=== PATIENT | male | born 1970 | race Two or more races ===

== ENCOUNTER 2016-07-25 02:34 | Observation (INO) | payer OTHER ==
[~2016-07-25] VITALS: Ht 177.8 cm; Wt 147.4 kg
[2016-07-25 03:12] LABS: BASO # 0.1 x10^3/uL (0.0-0.2); BASO % 1 % (0-3); EOS % 5 % (0-3); HEMATOCRIT 42.5 % (39.0-53.0); LYMPH # 2.9 x10^3/uL (1.0-4.8); LYMPH % 26 % (24-48); MEAN CORPUSCULAR HEMOGLOBIN 28 pg (25-35); MEAN CORPUSCULAR HGB CONC 33 g/dL (31-37); MEAN CORPUSCULAR VOLUME 86 fL (79-100); MONO % 8 % (0-9); NEUT % 60 % (31-73); PLATELET COUNT 197 x10^3/uL (140-400); RED BLOOD COUNT 4.97 x10^6/uL (4.30-5.70)
[2016-07-25] MEDS ORDERED: MORPHINE SULFATE 2 MG/ML DISP.SYRIN. IV PRN ×2 (03:15→12:30)
[2016-07-25] MEDS ORDERED: NITROGLYCERIN SUBLINGUAL 0.4 MG BOTTLE OF 25. SL PRN (03:15)
[2016-07-25] MEDS ORDERED: ASPIRIN 81 MG TAB.CHEW PO ONE (03:15)
[2016-07-25 03:24] LABS: CALCIUM 8.7 mg/dL (8.5-10.1); CREATININE 0.8 mg/dL (0.7-1.3); GFR 104.5; POTASSIUM 3.8 mmol/L (3.5-5.1)
[2016-07-25 03:30] LABS: ALBUMIN 3.4 g/dL (3.4-5.0); DIRECT BILIRUBIN 0.2 mg/dL (0.0-0.2); TOTAL BILIRUBIN 0.5 mg/dL (0.2-1.0)
[2016-07-25] MEDS ORDERED: IPRATRPIUM/ALBUTEROL 0.5/2.5MG 3 ML NEBU. NEB ONE (03:30)
[2016-07-25 05:00] VITALS: BP 160/79
--- NOTE | 2016-07-25 05:02 | PHYS DOC ---
Past Medical History Past Medical History: Hypertension Past Surgical History: Appendectomy Additional Past Surgical Histo: colon resection Alcohol Use: None Drug Use: None Adult General Chief Complaint Chief Complaint: SHORTNESS OF BREATH HPI HPI 46-year-old male presenting the emergency department with chest pressure that was 2 out of 10 nonradiating and not associated with nausea vomiting and diaphoresis. The pain was intermittent. Currently he is chest pain-free. He had associated shortness of breath. No alleviating or exacerbating factors. He did not take any medications to alleviate his pain. Review of Systems Review of Systems ROS negative for fevers chills cough. Negative for nausea vomiting. All other review of systems is negative unless otherwise noted in history of present illness. Current Medications Current Medications Current Medications Medications (Trade) Dose Ordered Sig/Jose Start Time Stop Time Status Last Admin Dose Admin Albuterol/ Ipratropium (Duoneb) 3 ml 1X ONCE 07/25/16 03:30 07/25/16 03:31 DC Aspirin (Children'S Aspirin) 324 mg 1X ONCE 07/25/16 03:15 07/25/16 03:22 DC 07/25/16 03:20 324 MG Morphine Sulfate 2 mg PRN Q1HR PRN 07/25/16 03:15 Nitroglycerin (Nitrostat) 0.4 mg PRN Q5MIN PRN 07/25/16 03:15 Allergies Allergies Allergies Coded Allergies Type Severity Reaction Last Updated Verified No Known Drug Allergies 07/25/16 No Physical Exam Physical Exam Constitutional: Well developed, well nourished, no acute distress, non-toxic appearance. obese. HENT: Normocephalic, atraumatic, bilateral external ears normal, oropharynx moist, no oral exudates, nose normal. [] Eyes: PERRLA, EOMI, conjunctiva normal, no discharge. Neck: Normal range of motion, no tenderness, supple, no stridor. Cardiovascular:Heart rate regular rhythm, no murmur Lungs & Thorax: Bilateral breath sounds clear to auscultation [] Abdomen: Bowel sounds normal, soft, no tenderness, no masses, no pulsatile masses. Skin: Warm, dry, no erythema, no rash. Back: No tenderness, no CVA tenderness. Extremities: No tenderness, no cyanosis, no clubbing, ROM intact, no edema. [] Neurologic: Alert and oriented X 3, normal motor function, normal sensory function, no focal deficits noted. Psychologic: Affect normal, judgement normal, mood normal. [] Current Patient Data Vital Signs Vital Signs Date Time Temp Pulse Resp B/P Pulse Ox O2 Delivery O2 Flow Rate FiO2 07/25/16 03:18 64 22 159/90 95 Room Air 07/25/16 02:42 98.4 98.4 Lab Values Laboratory Tests Test 07/25/16 02:55 White Blood Count 11.0x10^3/uL (4.0-11.0) Red Blood Count 4.97x10^6/uL (4.30-5.70) Hemoglobin 14.0g/dL (13.0-17.5) Hematocrit 42.5% (39.0-53.0) Mean Corpuscular Volume 86fL (79-100) Mean Corpuscular Hemoglobin 28pg (25-35) Mean Corpuscular Hemoglobin Concent 33g/dL (31-37) Red Cell Distribution Width 14.0% (11.5-14.5) Platelet Count 197x10^3/uL (140-400) Neutrophils (%) (Auto) 60% (31-73) Lymphocytes (%) (Auto) 26% (24-48) Monocytes (%) (Auto) 8% (0-9) Eosinophils (%) (Auto) 5% (0-3) H Basophils (%) (Auto) 1% (0-3) Neutrophils # (Auto) 6.6x10^3uL (1.8-7.7) Lymphocytes # (Auto) 2.9x10^3/uL (1.0-4.8) Monocytes # (Auto) 0.9x10^3/uL (0.0-1.1) Eosinophils # (Auto) 0.5x10^3/uL (0.0-0.7) Basophils # (Auto) 0.1x10^3/uL (0.0-0.2) Sodium Level 139mmol/L (136-145) Potassium Level 3.8mmol/L (3.5-5.1) Chloride Level 101mmol/L (98-107) Carbon Dioxide Level 29mmol/L (21-32) Anion Gap 9 (6-14) Blood Urea Nitrogen 10mg/dL (8-26) Creatinine 0.8mg/dL (0.7-1.3) Estimated GFR (Cockcroft-Gault) 104.5 Glucose Level 357mg/dL (70-99) H Calcium Level 8.7mg/dL (8.5-10.1) Total Bilirubin 0.5mg/dL (0.2-1.0) Direct Bilirubin 0.2mg/dL (0.0-0.2) Aspartate Amino Transferase (AST) 29U/L (15-37) Alanine Aminotransferase (ALT) 48U/L (16-63) Alkaline Phosphatase 161U/L (46-116) H Troponin I Quantitative < 0.017ng/mL (0.000-0.055) ZL-Som-X-Type Natriuretic Peptide 18pg/mL (0-124) Total Protein 8.0g/dL (6.4-8.2) Albumin 3.4g/dL (3.4-5.0) Lipase 139U/L (73-393) Laboratory Tests 07/25/16 02:55 Laboratory Tests 07/25/16 02:55 EKG EKG [] EKG shows sinus rhythm with a regular rate. [place] mildly leftward. Intervals are within normal limits. ST segments are congruent. Radiology/Procedures Radiology/Procedures [] Chest x-ray compared to previous in November 202009 similar to previous. Cardiomegaly present. No acute infiltrate or pneumothorax. Course & Med Decision Making Course & Med Decision Making Pertinent Labs and Imaging studies reviewed. (See chart for details) 46-year-old male presenting to the emergency department with chest pain that woke up the patient from sleep. Associated with shortness of breath. The pain resolved prior to arrival. Vital signs afebrile regular rate and hypertensive. Physical exam no murmur regular rate with clear to auscultation in the lung velez. EKG unremarkable. Chest x-ray similar to previous. Troponin negative. Glucose elevated at over 300. Patient was then admitted for serial troponins. Dragon Disclaimer Dragon Disclaimer This electronic medical record was generated, in whole or in part, using a voice recognition dictation system. Departure Departure Impression: Primary Impression: Shortness of breath Additional Impressions: Chest pain Diabetes Hypertension Obesity Disposition: 09 ADMITTED INPATIENT Admitting Physician: Suraj Dubois Condition: STABLE Referrals: SURAJ DUBOIS MD (PCP) Problem Qualifiers TO MCCORD MD Jul 25, 2016 05:02
[2016-07-25] MEDS ORDERED: LISI2.5T PO (05:37)
[2016-07-25 07:00] VITALS: BP 139/74
--- NOTE | 2016-07-25 07:38 | RAD ---
Indication: Chest pain. Technique: Upright portable chest radiograph was obtained. Comparison is from November 20, 2009. Findings: The lungs are clear. The cardiopulmonary silhouette is within normal limits. The bony structures are intact. Leads overlie the patient. Impression: No active pulmonary disease.
[2016-07-25 10:34] VITALS: BP 156/73
--- NOTE | 2016-07-25 10:35 | EKG ---
[facility] [address] [place] [address] Test Date: 2016-07-25 Test Time: 03:07:21 Pat Name: ADRYAN EISENBERG Department: Room: Gender: M Curriculum Developer: : 1970 Requested By: TO MCCORD Order Number: [id number] Reading MD: Measurements Intervals Leopold Rate: 67 P: 32 WI: 156 QRS: 3 QRSD: 100 T: 10 QT: 384 QTc: 409 Interpretive Statements SINUS RHYTHM R-S TRANSITION ZONE IN V LEADS DISPLACED TO THE LEFT QRS(T) CONTOUR ABNORMALITY CONSIDER ANTEROSEPTAL MYOCARDIAL DAMAGE POSSIBLY ABNORMAL ECG RI6.01 No previous ECG available for comparison
[2016-07-25] MEDS ORDERED: CALCIUM CARBONATE 500 MG TAB.CHEW PO PRN (12:30)
[2016-07-25] MEDS ORDERED: PROCHLORPERAZINE 25 MG SUPP.RECT. PR PRN (12:30)
[2016-07-25] MEDS ORDERED: ACETAMINOPHEN 325 MG TABLET. PO PRN (12:30)
[2016-07-25] MEDS ORDERED: LABETALOL 20 MG/4 ML DISP.SYRIN. IVP PRN (12:30)
[2016-07-25] MEDS ORDERED: MAG HYDROX/AL HYDROX/SIMETH 30 ML ORAL.SUSP PO PRN (12:30)
[2016-07-25] MEDS ORDERED: PROCHLORPERAZINE 10 MG/2 ML VIAL. IV PRN (12:30)
[2016-07-25] MEDS ORDERED: DEXTROSE 50% 25 GM / 50ML DISP.SYRIN. IV PRN (12:30)
[2016-07-25] MEDS ORDERED: ZOLPIDEM 5 MG TABLET. PO PRN (12:30)
[2016-07-25] MEDS ORDERED: BISACODYL 10 MG SUPP.RECT PR PRN (12:30)
[2016-07-25] MEDS ORDERED: MAGNESIUM HYDROXIDE 2,400 MG/30 ML ORAL.SUSP. PO PRN (12:30)
[2016-07-25] MEDS ORDERED: IBUPROFEN 400 MG TABLET. PO PRN (12:30)
[2016-07-25] MEDS ORDERED: LACTULOSE 20 GM/30 ML SOLUTION. PO PRN (12:30)
[2016-07-25] MEDS ORDERED: ONDANSETRON PF 4 MG/2 ML VIAL. IV PRN (12:30)
[2016-07-25] MEDS ORDERED: OXYCODONE IR 5 MG TABLET. PO PRN (12:30)
[2016-07-25] MEDS ORDERED: KETOROLAC 15 MG/ML VIAL. IV PRN (12:30)
[2016-07-25 12:54] LABS: CHOLESTEROL/HDL RATIO 7.3
[2016-07-25] MEDS: DOCUSATE SODIUM 100 MG CAPSULE PO SCH ×2 (13:00→20:53)
[2016-07-25] MEDS: LISINOPRIL 2.5 MG TABLET PO SCH (13:15)
--- NOTE | 2016-07-25 14:05 | PDOC1 ---
History and Physical Date of Admission Date of Admission DATE: 07/25/16 TIME: 14:00 Identification/Chief Complaint Chief Complaint chest pain Source Source: Caregiver, Chart review, Patient History of Present Illness History of Present Illness 46 y/o obese AA male with HTN, supposed to be taking Lisinopril 2.5 PO qD ( based on home med) but has not been doing so. PCP is supposed to be dr. Dubois but the attending called me and said he has not beens een by them x 3 yrs now. In any case, CP at rest, no known alleviating, some SOA, no emesis, no presyncopal sxs. NO radiation, maybe dull or pressure in description. Essentially low risk except for sex, obesity and sedentary lifestyle. NOn smoker , non drinker, BP on high side and has not been taking meds. NOt known DM but BS have been ranging in mid 200s to 300s. Past Medical History Cardiovascular: HTN Past Surgical History Past Surgical History: No pertinent history Family History Family History: Hypertension Social History Smoke: No ALCOHOL: none Drugs: None Current Problem List Problem List Problems Medical Problems: (1) Chest pain Status: Acute (2) Chest pain Status: Acute (3) Diabetes Status: Acute (4) Diabetes Status: Acute (5) Hypertension Status: Acute (6) Hypertension Status: Acute (7) N&V (nausea and vomiting) Status: Acute (8) N&V (nausea and vomiting) Status: Acute (9) Obesity Status: Acute (10) Obesity Status: Acute (11) Shortness of breath Status: Acute (12) Shortness of breath Status: Acute Problems: Current Medications Current Medications Current Medications Aspirin (Children'S Aspirin) 324 mg 1X ONCE PO Last administered on at 03:20; Start 07/25/16 at 03:15; Stop 07/25/16 at 03:22; Status DC Nitroglycerin (Nitrostat) 0.4 mg PRN Q5MIN PRN SL CHEST PAIN; Start 07/25/16 at 03:15 Morphine Sulfate 2 mg PRN Q1HR PRN IV SEVERE PAIN; Start 07/25/16 at 03:15 Albuterol/ Ipratropium (Duoneb) 3 ml 1X ONCE NEB ; Start 07/25/16 at 03:30; Stop 07/25/16 at 03:31; Status DC Ondansetron HCl (Zofran) 4 mg PRN Q6HRS PRN IV NAUSEA/VOMITING; Start at 12:30 Prochlorperazine Edisylate (Compazine) 10 mg PRN Q6HRS PRN IV NAUSEA/VOMITING; Start 07/25/16 at 12:30 Prochlorperazine (Compazine) 25 mg PRN Q12HR PRN IN NAUSEA/VOMITING; Start at 12:30 Al Hydroxide/Mg Hydroxide (Mylanta Plus Xs) 30 ml PRN Q3HRS PRN PO HEARTBURN / GAS; Start 07/25/16 at 12:30 Calcium Carbonate/ Glycine (Tums) 500 mg PRN Q3HRS PRN PO UPSET STOMACH; Start 07/25/16 at 12:30 Zolpidem Tartrate (Ambien) 5 mg PRN QHS PRN PO INSOMNIA, MAY REPEAT IN 1HR; Start 07/25/16 at 12:30 Oxycodone HCl (Roxicodone) 5 mg PRN Q3HRS PRN PO BREAKTHROUGH PAIN; Start at 12:30 Morphine Sulfate 1 mg PRN Q1HR PRN IV PAIN; Start 07/25/16 at 12:30 Ketorolac Tromethamine (Toradol) 15 mg PRN Q6HRS PRN IV PAIN; Start 07/25/16 at 12:30; Stop 07/30/16 at 12:29 Acetaminophen (Tylenol) 650 mg PRN Q6HRS PRN PO MILD PAIN / TEMP; Start at 12:30 Ibuprofen (Motrin) 400 mg PRN Q6HRS PRN PO MILD PAIN; Start 07/25/16 at 12:30 Docusate Sodium (Colace) 100 mg BID PO ; Start 07/25/16 at 13:00 Magnesium Hydroxide (Milk Of Magnesia) 2,400 mg PRN Q12HR PRN PO CONSTIPATION; Start 07/25/16 at 12:30 Lactulose 20 gm PRN Q12HR PRN PO CONSTIPATION; Start 07/25/16 at 12:30 Bisacodyl (Dulcolax Supp) 10 mg PRN DAILY PRN IN CONSTIPATION; Start 07/25/16 at 12:30 Lisinopril (Prinivil) 2.5 mg DAILY PO Last administered on 07/25/16at 13:15; Start 07/25/16 at 13:00 Insulin Aspart (Novolog) 0-9 UNITS TIDWMEALS SQ ; Start 07/25/16 at 17:00 Dextrose 12.5 gm PRN Q15MIN PRN IV SEE COMMENTS; Start 07/25/16 at 12:30 Labetalol HCl (Normodyne) 10 mg PRN Q2HR PRN IVP HYPERTENSION, SEE COMMENTS; Start 07/25/16 at 12:30 Active Scripts Active Reported Lisinopril 2.5 Mg Tablet 1 Tab PO DAILY Allergies Allergies: Coded Allergies: No Known Drug Allergies (Unverified , 07/25/16) ROS Review of System all 14 pt reviewed, neg Physical Exam General: Alert, Oriented X3, Cooperative, No acute distress HEENT: Atraumatic Lungs: Clear to auscultation Heart: S1S2, RRR, no thrills, no rubs Cardiovascular: S1, S2 Breasts: Normal Abdomen: Normal bowel sounds, Soft, No tenderness, No hepatosplenomegaly, No masses Male Genitals Exam: normal genitalia, normal prostate Extremities: No clubbing, No cyanosis, No edema, Normal pulses, No tenderness/ swelling Skin: No rashes, No breakdown, No significant lesion Neuro: Normal gait, Normal speech, Strength at 5/5 X4 ext, Normal tone, Sensation intact, Cranial nerves 3-12 NL, Reflexes 2+ Psych/Mental Status: Mental status NL, Mood NL Vitals Vitals Vital Signs Date Time Temp Pulse Resp B/P Pulse Ox O2 Delivery O2 Flow Rate FiO2 07/25/16 13:15 62 156/73 07/25/16 10:34 98.1 20 97 Room Air 98.1 Labs Labs Laboratory Tests Test 07/25/16 02:55 07/25/16 07:03 07/25/16 09:55 07/25/16 12:55 White Blood Count 11.0x10^3/uL (4.0-11.0) Red Blood Count 4.97x10^6/uL (4.30-5.70) Hemoglobin 14.0g/dL (13.0-17.5) Hematocrit 42.5% (39.0-53.0) Mean Corpuscular Volume 86fL (79-100) Mean Corpuscular Hemoglobin 28pg (25-35) Mean Corpuscular Hemoglobin Concent 33g/dL (31-37) Red Cell Distribution Width 14.0% (11.5-14.5) Platelet Count 197x10^3/uL (140-400) Neutrophils (%) (Auto) 60% (31-73) Lymphocytes (%) (Auto) 26% (24-48) Monocytes (%) (Auto) 8% (0-9) Eosinophils (%) (Auto) 5% (0-3) Basophils (%) (Auto) 1% (0-3) Neutrophils # (Auto) 6.6x10^3uL (1.8-7.7) Lymphocytes # (Auto) 2.9x10^3/uL (1.0-4.8) Monocytes # (Auto) 0.9x10^3/uL (0.0-1.1) Eosinophils # (Auto) 0.5x10^3/uL (0.0-0.7) Basophils # (Auto) 0.1x10^3/uL (0.0-0.2) Sodium Level 139mmol/L (136-145) Potassium Level 3.8mmol/L (3.5-5.1) Chloride Level 101mmol/L (98-107) Carbon Dioxide Level 29mmol/L (21-32) Anion Gap 9 (6-14) Blood Urea Nitrogen 10mg/dL (8-26) Creatinine 0.8mg/dL (0.7-1.3) Estimated GFR (Cockcroft-Gault) 104.5 Glucose Level 357mg/dL (70-99) Calcium Level 8.7mg/dL (8.5-10.1) Total Bilirubin 0.5mg/dL (0.2-1.0) Direct Bilirubin 0.2mg/dL (0.0-0.2) Aspartate Amino Transf (AST/SGOT) 29U/L (15-37) Alanine Aminotransferase (ALT/SGPT) 48U/L (16-63) Alkaline Phosphatase 161U/L (46-116) Troponin I Quantitative < 0.017ng/mL (0.000-0.055) < 0.017ng/mL (0.000-0.055) CX-Gsd-H-Type Natriuretic Peptide 18pg/mL (0-124) Total Protein 8.0g/dL (6.4-8.2) Albumin 3.4g/dL (3.4-5.0) Triglycerides Level 264mg/dL (0-150) Cholesterol Level 189mg/dL (0-200) LDL Cholesterol, Calculated 110mg/dL (0-100) VLDL Cholesterol, Calculated 53mg/dL (0-40) HDL Cholesterol 26mg/dL (40-60) Cholesterol/HDL Ratio 7.3 Lipase 139U/L (73-393) Glucose (Fingerstick) 273mg/dL (70-99) 326mg/dL (70-99) Laboratory Tests Test 07/25/16 02:55 07/25/16 07:03 07/25/16 09:55 07/25/16 12:55 White Blood Count 11.0x10^3/uL (4.0-11.0) Red Blood Count 4.97x10^6/uL (4.30-5.70) Hemoglobin 14.0g/dL (13.0-17.5) Hematocrit 42.5% (39.0-53.0) Mean Corpuscular Volume 86fL (79-100) Mean Corpuscular Hemoglobin 28pg (25-35) Mean Corpuscular Hemoglobin Concent 33g/dL (31-37) Red Cell Distribution Width 14.0% (11.5-14.5) Platelet Count 197x10^3/uL (140-400) Neutrophils (%) (Auto) 60% (31-73) Lymphocytes (%) (Auto) 26% (24-48) Monocytes (%) (Auto) 8% (0-9) Eosinophils (%) (Auto) 5% (0-3) Basophils (%) (Auto) 1% (0-3) Neutrophils # (Auto) 6.6x10^3uL (1.8-7.7) Lymphocytes # (Auto) 2.9x10^3/uL (1.0-4.8) Monocytes # (Auto) 0.9x10^3/uL (0.0-1.1) Eosinophils # (Auto) 0.5x10^3/uL (0.0-0.7) Basophils # (Auto) 0.1x10^3/uL (0.0-0.2) Sodium Level 139mmol/L (136-145) Potassium Level 3.8mmol/L (3.5-5.1) Chloride Level 101mmol/L (98-107) Carbon Dioxide Level 29mmol/L (21-32) Anion Gap 9 (6-14) Blood Urea Nitrogen 10mg/dL (8-26) Creatinine 0.8mg/dL (0.7-1.3) Estimated GFR (Cockcroft-Gault) 104.5 Glucose Level 357mg/dL (70-99) Calcium Level 8.7mg/dL (8.5-10.1) Total Bilirubin 0.5mg/dL (0.2-1.0) Direct Bilirubin 0.2mg/dL (0.0-0.2) Aspartate Amino Transf (AST/SGOT) 29U/L (15-37) Alanine Aminotransferase (ALT/SGPT) 48U/L (16-63) Alkaline Phosphatase 161U/L (46-116) Troponin I Quantitative < 0.017ng/mL (0.000-0.055) < 0.017ng/mL (0.000-0.055) CP-Rtb-J-Type Natriuretic Peptide 18pg/mL (0-124) Total Protein 8.0g/dL (6.4-8.2) Albumin 3.4g/dL (3.4-5.0) Triglycerides Level 264mg/dL (0-150) Cholesterol Level 189mg/dL (0-200) LDL Cholesterol, Calculated 110mg/dL (0-100) VLDL Cholesterol, Calculated 53mg/dL (0-40) HDL Cholesterol 26mg/dL (40-60) Cholesterol/HDL Ratio 7.3 Lipase 139U/L (73-393) Glucose (Fingerstick) 273mg/dL (70-99) 326mg/dL (70-99) VTE Prophylaxis Ordered VTE Prophylaxis Devices: Yes VTE Pharmacological Prophylaxi: Yes Assessment/Plan Assessment/Plan 1. CP doubt ACS 2. Obesity possible TRICIA 3. HTN, uncontrolled - not taking meds 4. Elevated BS, not known diabetic PLAN: Cycle CR, cards consult Check hgba1c Rsume lisinopril - mighjt need higher dose on dc Counselled Check lipids Dw RN and family at bedside OBS YAIR CEJA MD Jul 25, 2016 14:05
[2016-07-25] MEDS: INSULIN ASPART 300 UNITS/3 ML INSULN.PEN SQ SCH ×2 (14:28→17:41)
[2016-07-25 14:58] VITALS: BP 161/86
[2016-07-25] MEDS ORDERED: INSULIN ASPART 300 UNITS/3 ML INSULN.PEN SQ SCH (17:00)
--- NOTE | 2016-07-25 18:34 | PDOC ---
Provider Note Provider Note Patient seen and consult dictated. Location of the pain and the accompanying shortness of breath is worrisome for myocardial ischemia. Otherwise it was very brief in duration with no EKG or enzyme changes. Risk factor of possible diabetes. MPI tomorrow. This will be a 2 day study but if the stress study is normal he may be discharged. Thank you Dr. Alegria for asking me to see him. GISELLE ORDOÑEZ MD Jul 25, 2016 18:34
[2016-07-25 19:00] VITALS: BP 148/79
[2016-07-25 22:50] VITALS: BP 124/70
[2016-07-26 02:45] VITALS: BP 133/74
[2016-07-26 07:52] VITALS: BP 167/78
[2016-07-26] MEDS: LISINOPRIL 2.5 MG TABLET PO SCH (08:16)
[2016-07-26] MEDS: DOCUSATE SODIUM 100 MG CAPSULE PO SCH (08:25)
[2016-07-26] MEDS: INSULIN ASPART 300 UNITS/3 ML INSULN.PEN SQ SCH ×2 (08:25→12:02)
[2016-07-26] MEDS ORDERED: REGADENOSON 0.4 MG/5 ML DISP.SYRIN. IV ONE (09:30)
--- NOTE | 2016-07-26 10:54 | CONS ---
DATE OF CONSULTATION: HISTORY OF PRESENT ILLNESS: This is a 46-year-old white male who came in because of chest pain. He woke up in the middle of the night around 2:00 a.m. He was short of breath. He had a mild discomfort in the retrosternal area. It lasted only for about 5 or 10 minutes. There is no associated diaphoresis. There is no radiation of the pain. His got concerned. She drove him to the Emergency Room. In the Emergency Room, the pain had resolved. He was given an aspirin. An EKG was normal. Cardiac enzymes were negative. He was subsequently hospitalized. He has never had similar discomfort in the past. He has had episodes of what he considers indigestion. Sometimes it is so bad that he has thrown up after a meal. He has taken PPIs in the past, but not recently. He has had a stress test several years ago. He does not quite admit to having hypertension or taking any medications, but in his home medications, he has been listed as taking lisinopril 2.5 mg a day. His blood sugars have been elevated in the hospital, but he attributes that to what he had taken just before the blood sugar was checked. He says he has never been told of diabetes and he has never had high blood sugars in the past. He believes, he has had his lipids checked and they have been normal. Other than the lisinopril, he is on no other medications. He is fairly active at home and at work. His work involves a lot of moving around and getting up and going. However, he has then no vigorous exercise such as working in the yard, running. He has never had similar discomfort in the past. There is no history of myocardial infarction or of a stroke. FAMILY HISTORY: His father , but he does not know the reason. He believes it was an infection. His mother is alive. She has hypertension, diabetes, and cancer. There is no family history of myocardial infarction, stroke, open heart surgery, or stent placement. He has always been overweight as he is now. PHYSICAL EXAMINATION: VITAL SIGNS: The heart rate was 70 per minute and regular. The blood pressure was 160/90. LUNGS: Clear. HEART: The heart sounds are normal with no murmur or gallop. ABDOMEN: Soft. EXTREMITIES: There is no edema and the distal pulses are palpable. LABORATORY DATA: An EKG was normal. The cardiac enzymes were negative. The blood sugars have been elevated at 271, 326, 229, 242. Today, the total cholesterol was 189, triglycerides 264, LDL cholesterol 110, HDL cholesterol was 26. IMPRESSION: 1. Chest discomfort, rule out myocardial ischemia. 2. Hypertension. 3. Diabetes mellitus. 4. Dyslipidemia. The location of the pain that he experienced and the fact that it was accompanied by shortness of breath is suspicious of myocardial ischemia. However, it lasted for a very brief period of time. He has risk factors of hypertension, diabetes, dyslipidemia, and being significantly overweight. I informed him that he would need to have a myocardial perfusion imaging study to evaluate for underlying significant coronary artery disease. He was reluctant to stay, but his thought that it would be the better part of and get it done tomorrow. I warned him that this may barrel turner it a 2-day study. If the first study that is the stress study is negative, he could certainly finish the rest part of it as and when needed. Thank you for asking me to see him. GISELLE ORDOÑEZ MD DR: WALESKA/mariza JOB#: [id number] / [id number]
[2016-07-26 11:06] VITALS: BP 134/81
--- NOTE | 2016-07-26 12:06 | RAD ---
APPROVED REPORT Test Type: Pharmacological Stress Nurse/Tech: Rosa Juan RN Test Indications: chest pain Cardiac History: see ehr Medications: see ehr Medical History: see ehr Resting ECG: SR Resting Heart Rate: 67 bpm Resting Blood Pressure: 144/86mmHg Pretest Chest Pain: None Nurse/Tech Notes Lungs CTA, S1, S2 Consent: The procedure was explained to the patient in lay terms. Informed consent was witnessed. Quang eout was entered into [employer]. History and Stress Test performed by Geri [facility]ant[facility] [employer]. Details Pharmacologic stress testing was performed using 0.4mg per 5ml of regadenoson given intravenously ove r 7-10 seconds. Stress Symptoms No chest pain or symptoms. POST EXERCISE Reason for Termination: Infusion complete Max HR: 96 bpm Max Blood Pressure: 152/81mmHg Blood Pressure response to exercise: Normal blood pressure response during stress. Chest Pain: No. Arrhythmia: No. ST Change: No. INTERPRETATION Stress EKG Conclusion: No acute changes were noted. Imaging Protocol IMAGE PROTOCOL: Rest Tc-99m/stress Tc-99m 2 days Rest: Stress: Viability: Radiopharm.Tc99m Sestamibi [id number] Img Date 07/26/2016 Inj-Img [id number]. Stress Admin Site: IV - Right AntecubitalAdministrator: HIEN Alexis, ARRT (R)(N) STRESS DATA End Diast. Vol.129.0mlAv. Heart Rate72.0bpm End Syst. Vol.44.0mlCO Index BSA0.0L/min Myocardial Mnwl568.0gEject. Hivfvmni77.0% Stress Rates Pk. Fill Rate2.82EDV/secLVtime Pk. Fill 238.99msec Pk. Empty Rate2.76ESV/secLVtime Pk. Nynxq989.87msec 07/28 Pk. Fill1.34EDV/sec Stress Scores Regional WT0.00Summed WT5.00 Regional WM0.00Summed WM0.00 LV Perf. Quant 17 Seg. SSS0.00 Stress Defect Extent (% LAD)0.00Rest Defect Extent (% LAD)Rev. Defect Extent (% LAD)0.00 Stress Defect Extent (% LCX) 0.00Rest Defect Extent (% LCX)Rev. Defect Extent (% LCX)0.00 Stress Defect Extent (% RCA)0.00Rest Defect Extent (% RCA)Rev. Defect Extent (% RCA)0.00 Stress Defect Extent (% AG)0.00Rest Defect Extent (% AG)Rev. Defect Extent (% AG)0.00 Conclusion 1. No electrocardiographic changes suggestive of myocardial ischemia with pharmacological stress. 2. No perfusion defects with stress imaging to suggest myocardial ischemia or scar 3. Normal wall motion and wall thickening with an ejection fraction of 66%. 4. Scan indicates low risk for future cardiac events
--- NOTE | 2016-07-26 12:15 | PDOC ---
Provider Note Provider Note No perfusion defects on stress imaging today. No need for rest imsging. High fasting blood sugar. Hgb. A1C not yet available. Most probably a diabetic. OK with me to be discharged today on ASA and Statin Thank you Dr. Alegria for asking me to see her. GISELLE ORDOÑEZ MD Jul 26, 2016 12:15
--- NOTE | 2016-07-26 12:40 | PDOC3 ---
Discharge Summary [facility] Date of Admission: Jul 25, 2016 Discharge Date: Jul 26, 2016 Admitting Diagnosis 1. atypical chest pain, ruled out ACS, 2/2 anxiety? 2. Obesity possible TRICIA 3. HTN, uncontrolled 4.new diagnosed DM2 Problems: Final Diagnosis 1. atypical chest pain, ruled out ACS, 2/2 anxiety? 2. Obesity possible TRICIA 3. HTN, uncontrolled 4.new diagnosed DM2 CONSULTS card Procedures neg MPI Brief Hospital Course Mr. Oliva is a 46 old M, obesity, supposed to take meds for HTN, but not, comes for chest pain, sob. He got MPI, neg. was found new onset DM2, glu>200, hba1c pending dc home with lisinopril 5mg daily, metoformin, asa, lipitor ( as requied by dr. Champagne). Pt not seeing dr. Hendrickson for 3years, who would not see him here and we took over, refer to dr. Cali dc time 40min Lungs: Clear to auscultation Heart: S1S2, RRR, no thrills, no rubs Cardiovascular: S1, S2 Breasts: Normal Abdomen: Normal bowel sounds, Soft, No tenderness, No hepatosplenomegaly, No masses Male Genitals Exam: normal genitalia, normal prostate Extremities: No clubbing, No cyanosis, No edema, Normal pulses, No tenderness/ swelling Skin: No rashes, No breakdown, No significant lesion Neuro: Normal gait, Normal speech, Strength at 5/5 X4 ext, Normal tone, Sensation intact, Cranial nerves 3-12 NL, Reflexes 2+ Psych/Mental Status: Mental status NL, Mood NL Problems: Disposition home CONDITION AT DISCHARGE: Improved Diet ada Scheduled Lisinopril (Lisinopril) 1 TAB PO DAILY (Reported) Follow Up pcp in 2 weeks SIXTO RENEE MD Jul 26, 2016 12:39
[2016-07-26] MEDS ORDERED: METF10002 PO (12:45)
[2016-07-26] MEDS ORDERED: ATOR10TA60 PO (12:45)
[2016-07-26] MEDS ORDERED: ASPI81TA44 PO (12:45)
[2016-07-26] MEDS ORDERED: LISI2.5T PO (12:45)
[2016-07-26] MEDS ORDERED: ASPIRIN 81 MG TAB.CHEW PO SCH (13:00)
[2016-07-26] MEDS ORDERED: METFORMIN 1,000 MG TABLET PO SCH (17:00)
[2016-07-26] MEDS ORDERED: ATORVASTATIN CALCIUM 10 MG TABLET. PO SCH (21:00)
[2016-07-27] MEDS ORDERED: LISINOPRIL 5 MG TABLET. PO SCH (09:00)
== END 2016-07-26 13:00 | disposition home or self-care (01) ==
LOC: ER 02:34 → 6 SOUTH 03:45 → ER 04:50
PROVIDERS: ADMIT Internal Medicine; ATTEND Internal Medicine
DX: R07.89 Other chest pain (principal); I10 Essential (primary) hypertension; E11.9 Type 2 diabetes mellitus without complications; E66.9 Obesity, unspecified; R06.02 Shortness of breath; R11.2 Nausea with vomiting, unspecified; E78.5 Hyperlipidemia, unspecified; Z83.3 Family history of diabetes mellitus; Z82.49 Family history of ischemic heart disease and other diseases of the circulatory system
CPT/HCPCS: 36415; 71010; 78452; 80048; 80061; 80076; 82947; 83036; 83690; 83880; 84484; 85027; 93005; 93017; 96372; 99285; A9500; G0378; J1815; J2785; 96374; G0379